=== PATIENT | male | born 1955 | race Caucasian/White ===

== ENCOUNTER 2017-11-11 16:19 | Observation (INO) ==
[2017-11-11] MEDS ORDERED: Nitroglycerin 0.4 MG TAB.SUBL SL PRN ×2 (16:25→17:56)
[2017-11-11] MEDS ORDERED: 0.9 % Sodium Chloride 1,000 ML IVC SCH ×2 (16:30→17:56)
[2017-11-11 16:36] LABS: Hematocrit 37.3 % (37.5-50.1); Hemoglobin 12.4 g/dL (12.9-16.9); Mean Corpuscular HGB Conc 33.2 g/dL (31.6-35.5); Mean Corpuscular Hemoglobin 26.7 pg (28.0-33.3); Mean Corpuscular Volume 80.4 fL (83.0-100.0); Platelet Count 506 K/mcL (140-400); Red Blood Count 4.64 M/mcL (4.19-5.50); Red Cell Distribution Width 14.6 % (11.5-14.5)
--- NOTE | 2017-11-11 16:37 | Emergency Department Note ---
Disposition Clinical Impression: Atrial fibrillation with RVR Disposition: Admitted As Inpatient Chest Pain HPI - General Chief Complaint: ED Chest Pain Stated Complaint: Lt sided cp, onset 2 days ago Time Seen by Provider: 11/11/17 16:20 Source: patient Mode of arrival: ambulatory Limitations: no limitations Vital Signs Reviewed: Yes Nursing Notes Reviewed: Yes - History of Present Illness HPI Narrative: Patient complains of chest pain only when he coughs. He has felt dizzy for the past couple of days. He denies any cardiac history other than hypertension. He denies being diagnosed with atrial fibrillation. He denies any fevers chills nausea vomiting any current chest pain no shortness of breath belly pain diarrhea rashes or other complaints. Pt complaint: chest pain Onset (ago): day(s) (2) Duration: intermittent Onset: during rest Pain Location: left chest, right chest Severity: mild Quality: sharp (with cough) Pain Radiation: none Improves with: nothing Worsens with: nothing Associated symptoms: Reports: other (lightheadedness). Denies: nausea, vomiting , diaphoresis, dyspnea, sense of impending doom, syncope, palpitations, fever, cough, leg swelling - Related Data Home Medications Medication Instructions Recorded Confirmed Albuterol Sulfate [Ventolin Hfa] 8 gm IH Q6H PRN 11/11/17 11/11/17 Docusate Sodium [Stool Softener] 100 mg PO DAILY 11/11/17 11/11/17 Fluticasone/Vilanterol [Breo 1 each IH DAILY 11/11/17 11/11/17 Ellipta 100-25 Mcg INH] Latanoprost [Xalatan] 1 drop OP DAILY 11/11/17 11/11/17 Losartan Potassium [Cozaar] 50 mg PO DAILY 11/11/17 11/11/17 Allergies Allergy/AdvReac Type Severity Reaction Status Date / Time aspirin AdvReac See Verified 11/11/17 16:21 Comments All systems ED: reviewed and negative except as stated. Review of Systems: As Per HPI Constitutional: Denies: fever, chills, weakness, weight change Eyes: Denies: eye pain, eye discharge, vision change ENT ED: Denies: ear pain, throat pain, dental pain, hearing loss, epistaxis, congestion, dysphagia Cardiovascular: Reports: as per HPI (with cough), chest pain. Denies: palpitations, dyspnea on exertion, edema, syncope Respiratory: Reports: as per HPI, cough. Denies: dyspnea, wheezes, hemoptysis, stridor Gastrointestinal: Denies: abdominal pain, nausea, vomiting, diarrhea, constipation, hematemesis, melena, hematochezia Genitourinary: Denies: urgency, dysuria, frequency, hematuria Musculoskeletal: Denies: back pain, neck pain, arthralgia, myalgia Integumentary: Denies: rash, abrasion, lesions Neurological: Denies: headache, weakness, numbness, paresthesias, confusion, abnormal gait, vertigo Psychiatric: Denies: anxiety, depression, suicidal thoughts, homicidal thoughts , auditory hallucinations, visual hallucinations Endocrine: Denies: fatigue Hematological/Lymphatic: Denies: easy bleeding, easy bruising Chest Pain PMH - Past Medical History Medical history: Reports: no medical history Surgical history: Reports: other (Partial colectomy) Psychiatric history: Reports: no psych history - Social History Smoking Status: Current every day smoker Alcohol use: Reports: none Drug use: Reports: none Physical Exam - General Limitations: no limitations General appearance: alert, in no apparent distress - Head Head exam: atraumatic, normocephalic, normal inspection - Eye Eye exam: Present: normal appearance, PERRL, EOMI - ENT ENT exam: normal exam, normal oropharynx, mucous membranes moist - Neck Neck exam: Present: normal inspection, full ROM, trachea midline - Chest Chest inspection: Present: normal inspection, symmetric chest wall rise - Respiratory Respiratory exam: Present: normal lung sounds bilaterally - Cardiovascular Cardiovascular exam: Present: regular rate, normal rhythm - Extremities Exam Extremities exam: Present: normal inspection - Back Exam Back exam: Present: normal inspection - Neurological Exam Neurological exam: Present: alert, oriented X3 - Psychiatric Psychiatric exam: Present: normal affect, normal mood - Skin Skin exam: Present: warm, dry, intact Chest Pain - MDM Narrative Medical decision making narrative: I discussed case with Dr. Singleton accepts admission. I reviewed the patient's medication list - Lab Data Lab results reviewed: Yes I reviewed the patient's lab results. - Radiology Data Radiology results reviewed: Yes I reviewed the patient's radiology results. - EKG Data EKG attestation: Yes I reviewed and interpreted this EKG. EKG results narrative: EKG shows atrial fibrillation with rapid ventricular response. The rate is 151 bpm QRS duration 77 ms QT interval 246 ms QTC 332 ms R axis of [address] and T changes probably secondary to rate. EKG #2 after Cardizem was administered shows a sinus rhythm with sinus arrhythmia. Rate is 95 bpm. Intervals 107 ms. QRS duration 81 ms. QT interval 315 ms QTc interval 367 ms. R axis [address] or T-wave changes.
[2017-11-11 16:43] LABS: INR 1.2; Prothrombin Time 13.8 Seconds (9.4-12.1)
[2017-11-11 16:46] LABS: Activated Partial Thrombo Time 33.7 Seconds (26.0-36.0)
[2017-11-11 16:55] LABS: Alanine Aminotransferase 10 Units/L (7-52); Albumin 3.6 g/dL (3.5-5.7); Alkaline Phosphatase 75 Units/L (34-104); Aspartate Amino Transferase 15 Units/L (13-39); BUN/Creatinine Ratio 11 (6-26); Bilirubin,Total 0.3 mg/dL (0.3-1.0); Blood Urea Nitrogen 11 mg/dL (8-23); Calcium 9.4 mg/dL (8.6-10.3); Carbon Dioxide 25 mEq/L (23-29); Chloride 99 mEq/L (98-107); Globulin 3.7 g/dL (2.4-3.5); Glucose 168 mg/dL (70-105); Osmolality,Calculated 281 (280-300); Potassium 3.9 mEq/L (3.5-5.1); Sodium 134 mEq/L (136-145); Total Protein 7.3 g/dL (6.4-8.9); Troponin I < 0.03 ng/mL (< 0.04); eGFR For Non-African Americans > 60 (> 60)
[2017-11-11] MEDS ORDERED: Naloxone 0.4 MG/ML INJ IVP PRN (17:56)
[2017-11-11 18:40] LABS: Basophils # 0.1 K/mcL (0.0-0.2); Basophils % 0.4 %; Eosinophils # 0.2 K/mcL (0.0-0.6); Eosinophils % 1.2 %; Hematocrit 37.4 % (37.5-50.1); Hemoglobin 12.3 g/dL (12.9-16.9); Immature Granulocytes % 0.6 % (0-4); Lymphocytes % 14.4 %; Mean Corpuscular HGB Conc 32.9 g/dL (31.6-35.5); Mean Corpuscular Hemoglobin 26.5 pg (28.0-33.3); Mean Corpuscular Volume 80.6 fL (83.0-100.0); Mean Platelet Volume 9.1 fL (9.4-12.4); Monocytes # 1.3 K/mcL (0.0-1.3); Monocytes % 9.1 %; Neutrophils # 10.6 K/mcL (1.6-8.9); Platelet Count 495 K/mcL (140-400); Red Blood Count 4.64 M/mcL (4.19-5.50); Red Cell Distribution Width 14.6 % (11.5-14.5); Segmented Neutrophils % 74.3 %
[2017-11-12 04:51] LABS: BUN/Creatinine Ratio 9 (6-26); Blood Urea Nitrogen 9 mg/dL (8-23); Calcium 9.3 mg/dL (8.6-10.3); Carbon Dioxide 25 mEq/L (23-29); Chloride 102 mEq/L (98-107); Glucose 140 mg/dL (70-105); Osmolality,Calculated 281 (280-300); Potassium 4.2 mEq/L (3.5-5.1); Sodium 135 mEq/L (136-145); eGFR For Non-African Americans > 60 (> 60)
[2017-11-12] MEDS: (Fluticasone/Vilanterol [Breo Ellipta 100-25 Mcg Inh]) IH SCH (08:35)
[2017-11-12] MEDS: Latanoprost 2.5 ML BOTTLE RIGHT EYE SCH (08:36)
--- NOTE | 2017-11-12 10:32 | Internal Med History&Physical ---
Date of Encounter: 11/12/17 Time of Encounter: 09:55 Assessment and Plan (1) Atrial fibrillation with RVR Current visit: Yes Status: Acute Now converted back to NSR. Will order TSH and echocardiogram to further evaluate. (2) COPD (chronic obstructive pulmonary disease) Current visit: Yes Status: Chronic Room air oximetry will be checked on 6 minute walk prior to discharge to see if home oxygen is needed. Chest CT will be done to further evaluate leukocytosis and follow up on cavitary lesion. Qualifiers: COPD type: unspecified COPD Qualified Code(s): J44.9 - Chronic obstructive pulmonary disease, unspecified (3) Cavitary lesion of lung Current visit: Yes Status: Acute As per above (4) Microcytic anemia Current visit: Yes Status: Acute Duration unknown. Suspect iron deficiency. Anemia testing has been ordered. (5) Hypertension Current visit: Yes Status: Chronic Continue Cozaar and monitor blood pressure. Qualifiers: Hypertension type: essential hypertension Qualified Code(s): I10 - Essential (primary) hypertension (6) Leukocytosis Current visit: Yes Status: Acute Duration unknown. We will order chest CT as per above Qualifiers: Leukocytosis type: unspecified Qualified Code(s): D72.829 - Elevated white blood cell count, unspecified Internal Medicine - H&P: HPI Chief complaint: AF with RVR Admitted From: Emergency Dept Plans for Post Hospital Care: Home History of present illness: Mr. Grady is a 62 year old male who came to emergency room after developing recurrent discomfort in his chest that he describes as a sharp precordial discomfort that occurred while at leisure. He denies significant dyspnea or cough. He reports a similar episode had occurred the previous day while at leisure and lasted 10-15 minutes. He was evaluated in emergency room and found to have atrial fibrillation with rapid ventricular response. He was given Cardizem and converted to normal sinus rhythm. He was admitted to [facility] floor for ongoing care needs. He denies previous occurrence of atrial fibrillation. Cardiovascular history is significant for hypertension. He denies RI heart failure angina DVT or pulmonary embolus. He denies alcohol use. He drinks 2 cups coffee and consumes 2 cans Pepsi daily which is unchanged for several years. He feels back to his baseline now. Past Med Surg Social Fam HX - Past Medical History Medical history: no medical history Psychiatric history: no psych history - Past Surgical History Surgical History: other (Partial colectomy) Additional surgical history: BOWEL BLOCKAGE WITH SECTION OF COLOR REMOVED 2000 - Social History Smoking Status: Current every day smoker Smokeless Tobacco Status: No Alcohol use: none Drug use: none - Family History Brother Living Status: Hx Family Cardiac Disorders: Yes Hx Family Cancer: Yes (lung) Internal Medicine - H&P: Meds Albuterol Sulfate [Ventolin Hfa] 8 gm IH Q6H PRN 11/11/17 [History] Docusate Sodium [Stool Softener] 100 mg PO DAILY 11/11/17 [History] Fluticasone/Vilanterol [Breo Ellipta 100-25 Mcg INH] 1 each IH DAILY 11/11/17 [ History] Latanoprost [Xalatan] 1 drop OP DAILY 11/11/17 [History] Losartan Potassium [Cozaar] 50 mg PO DAILY 11/11/17 [History] 3 Allergy/AdvReac Type Severity Reaction Status Date / Time aspirin AdvReac See Verified 11/11/17 16:21 Comments All Systems PM: A 10-system review of systems was performed and is negative for pertinent findings except as documented above in the HPI. Review of systems: Gen.: He states his weight has been stable for several months Cardiovascular: As per history of present illness Respiratory: He states he quit smoking approximate 7 months ago after starting at age 8 and smoking up to 4 packs per day. He had pulmonary function test 10/2017 which showed FVC 78% predicted, FEV1 61% predicted, FEV1/FVC 60%, MVV 38 % predicted, and RV 172% predicted. There was no significant improvement in FEV1 postbronchodilator. He was diagnosed with moderate obstructive lung disease. He does not use home oxygen. Chest CT 10/13/2017 showed right upper lobe cavitary lesion possibly representing pneumonia although underlying mass could not be excluded. Reports seeing a track worker a few days later and was told to return for follow-up in 2 months. GI: Denies disorders of his liver gallbladder or exocrine pancreas. He reports he had bowel obstruction requiring surgical intervention and possible segmental resection over 20 years ago. He denies recurrent obstruction. : He denies hematuria dysuria or kidney stones. Neurologic: He denies large distribution strokes or seizures. Endocrine: He denies diabetes thyroid disease or hyperlipidemia Hematology/oncology: He was unaware he had anemia. He denies internal malignancies or other blood disorders. Psychiatric: He denies anxiety depression or other mental health issues [place] skeletal: He denies arthritis gout or other bone joint or muscle disorders. - Constitutional Vitals: Temp Pulse Resp BP Pulse Ox 99.0 F 77 16 120/71 94 11/12/17 06:45 11/12/17 06:45 11/12/17 06:45 11/12/17 06:45 11/12/17 06:45 Exam: Gen.: He is a well-developed well-nourished male resting comfortably in bed who appears in no acute distress at present time HEENT: Head is atraumatic and normocephalic. Eyes: EOMI. There is no scleral icterus. Mouth: Mucosa is moist. Neck: Supple and nontender. There is no thyromegaly or adenopathy noted. Heart: Regular without murmurs gallops or ectopics Lungs: No wheezes or crackles are heard. Abdomen: Soft and nontender. No masses or guarding are noted. He has well- healed surgical scars from previous abdominal surgery. Extremities: There is no cyanosis edema or clubbing noted. Dorsalis pedis and posttibial pulses are 1-2 over 2 bilaterally. Neurologic: Mental status: He is talkative and a good historian. Cranial nerves : Smile is symmetric. Forehead wrinkles bilaterally. Tongue protrudes midline. EOMI. Motor: There is no pronator drift. Cerebellar: Finger to nose is intact bilaterally. Skin: Warm and dry Internal Med - H&P Results - Labs CBC & Chem 7: 11/11/17 18:30 11/12/17 04:18 Labs: Short CBC 11/11/17 Range/Units 18:30 WBC 14.2 H (4.3-11.1) K/mcL Hgb 12.3 L (12.9-16.9) g/dL Hct 37.4 L (37.5-50.1) % Plt Count 495 H (140-400) K/mcL Neutrophils # 10.6 H (1.6-8.9) K/mcL BMP 11/12/17 04:18 Sodium 135 L Potassium 4.2 Chloride 102 Carbon Dioxide 25 BUN 9 Creatinine 0.97 Glucose 140 H Calcium 9.3 Cardiac Enzymes 11/11/17 11/12/17 Range/Units 18:30 04:18 Troponin I < 0.03 < 0.03 (< 0.04) ng/mL
[2017-11-12 16:38] LABS: Estimated Average Glucose 126 mg/dl
[2017-11-12 16:48] LABS: % Iron Saturation 5 % (20-55); Iron 11 mcg/dL (65-175); Transferrin 164 mg/dL (203-362)
[2017-11-12 17:05] LABS: Ferritin 352 ng/mL (20-250)
[2017-11-12 17:10] LABS: Folate 20.9 ng/mL (3.0-16.0)
[2017-11-12] MEDS: Piperacillin/Tazobactam 3.375 GM in 0.9 % Sodium Chloride Mini Bag 100 ML IVPB SCH (18:36)
[2017-11-12] MEDS: Lactobacillus 1 EACH CAP.SPRINK PO SCH (21:05)
[2017-11-13] MEDS: Piperacillin/Tazobactam 3.375 GM in 0.9 % Sodium Chloride Mini Bag 100 ML IVPB SCH ×2 (00:22→08:47)
[2017-11-13 05:59] LABS: Basophils # 0.1 K/mcL (0.0-0.2); Basophils % 0.5 %; Eosinophils # 0.3 K/mcL (0.0-0.6); Eosinophils % 2.8 %; Hematocrit 34.3 % (37.5-50.1); Hemoglobin 11.2 g/dL (12.9-16.9); Immature Granulocytes % 0.5 % (0-4); Lymphocytes # 1.4 K/mcL (0.6-4.6); Lymphocytes % 13.8 %; Mean Corpuscular HGB Conc 32.7 g/dL (31.6-35.5); Mean Corpuscular Hemoglobin 26.5 pg (28.0-33.3); Mean Corpuscular Volume 81.3 fL (83.0-100.0); Mean Platelet Volume 9.5 fL (9.4-12.4); Monocytes # 1.2 K/mcL (0.0-1.3); Monocytes % 11.2 %; Neutrophils # 7.4 K/mcL (1.6-8.9); Platelet Count 443 K/mcL (140-400); Red Blood Count 4.22 M/mcL (4.19-5.50); Red Cell Distribution Width 14.9 % (11.5-14.5); Segmented Neutrophils % 71.2 %
[2017-11-13] MEDS ORDERED: *HR* Digoxin 0.5 MG/2 ML AMPUL IVP ONE ×2 (06:03→11:01)
[2017-11-13] MEDS ORDERED: *HR* Propranolol 1 MG/ML VIAL IVP ONE ×2 (06:04→11:01)
[2017-11-13 06:15] LABS: BUN/Creatinine Ratio 9 (6-26); Blood Urea Nitrogen 9 mg/dL (8-23); Calcium 9.2 mg/dL (8.6-10.3); Carbon Dioxide 25 mEq/L (23-29); Chloride 102 mEq/L (98-107); Glucose 129 mg/dL (70-105); Magnesium 1.8 mg/dL (1.6-2.6); Osmolality,Calculated 282 (280-300); Potassium 3.8 mEq/L (3.5-5.1); Sodium 136 mEq/L (136-145); eGFR For Non-African Americans > 60 (> 60)
[2017-11-13] MEDS: Lactobacillus 1 EACH CAP.SPRINK PO SCH (08:46)
[2017-11-13] MEDS: Latanoprost 2.5 ML BOTTLE RIGHT EYE SCH (08:48)
[2017-11-13] MEDS: (Fluticasone/Vilanterol [Breo Ellipta 100-25 Mcg Inh]) IH SCH (08:49)
--- NOTE | 2017-11-13 10:06 | Discharge Summary ---
Date of Encounter: 11/13/17 Time of Encounter: 09:50 - Discharge Diagnosis (1) Atrial fibrillation with RVR Priority: Primary Status: Acute (2) Cavitary lesion of lung Priority: Secondary Status: Acute (3) Postobstructive pneumonia Priority: Secondary Status: Acute (4) COPD (chronic obstructive pulmonary disease) Priority: Secondary Status: Chronic Qualifiers: COPD type: unspecified COPD Qualified Code(s): J44.9 - Chronic obstructive pulmonary disease, unspecified (5) Microcytic anemia Priority: Secondary Status: Acute (6) Hypertension Priority: Secondary Status: Chronic Qualifiers: Hypertension type: essential hypertension Qualified Code(s): I10 - Essential (primary) hypertension Hospital course: Mr. Grady is a 62 year old male who came to emergency room after developing recurrent discomfort in his chest that he describes as a sharp precordial discomfort that occurred while at leisure. He denies significant dyspnea or cough. He reports a similar episode had occurred the previous day while at leisure and lasted 10-15 minutes. He was evaluated in emergency room and found to have atrial fibrillation with rapid ventricular response. He was given Cardizem and converted to normal sinus rhythm. He was admitted to [facility] for ongoing care needs. Initial orders were written by the emergency room physician. I saw him on November 12 and performed a history and physical. By the time I saw him he had converted back to normal sinus rhythm. TSH returned normal at 1.988. Echocardiogram was ordered to further evaluate but had not been done by time of transfer. Chest CT was ordered to further evaluate leukocytosis and cavitary lesion seen on chest CT [address] showed a cavitary lesion measuring 6.4 x 5.2 x 7.7 cm. The radiologist stated findings were highly suspicious for a large squamous cell carcinoma. I spoke with the patient about these findings the afternoon of November 12 but he declined suggested transfer at that time stating he wanted to talk to family. I spoke to him again the morning of November 13 with his daughter in the room and he agreed to be transferred to [facility] for ongoing care needs. He developed recurrent atrial fibrillation the early childhood associate of November 13. He was given IV beta annie and Lanoxin initially. IV Cardizem was then ordered with additional IV beta annie and Lanoxin given prior to transfer. He was asymptomatic and vital signs remained stable otherwise. Anemia testing showed iron 11, transferrin saturation 5%, transferrin 164, ferritin 352, B12 820, and folate 20.9. He can be started on supplemental ferrous sulfate by physicians assuming his care. Hemoglobin A1c returned at 6.0% consistent with prediabetes. I spoke with the hospitalist at [facility] and the patient was accepted in transfer for ongoing care needs. - Time Spent with Patient Total time spent providing and/or coordinating discharge services: - Discharge Medications Home Medications: Albuterol Sulfate [Ventolin Hfa] 8 gm IH Q6H PRN 11/11/17 [History] Docusate Sodium [Stool Softener] 100 mg PO DAILY 11/11/17 [History] Fluticasone/Vilanterol [Breo Ellipta 100-25 Mcg INH] 1 each IH DAILY 11/11/17 [ History] Latanoprost [Xalatan] 1 drop OP DAILY 11/11/17 [History] Losartan Potassium [Cozaar] 50 mg PO DAILY 11/11/17 [History] Allergies/Adverse Reactions: 3 Allergy/AdvReac Type Severity Reaction Status Date / Time aspirin AdvReac See Verified 11/11/17 16:21 Comments Date of admission: 11/11/17 17:33 Primary care physician: Lis Louis CNP - Constitutional Vitals: Temp Pulse Resp BP Pulse Ox 98.3 F 105 16 111/72 96 11/13/17 07:17 11/13/17 07:17 11/13/17 07:17 11/13/17 07:17 11/13/17 07:17 - Patient Status Disposition: Transfer Other - Discharge Instructions
[2017-11-13 10:25] VITALS: BP 110/64
--- NOTE | 2017-11-15 14:45 | Electrocardiograph Report ---
[address] [place], [place] [address] Test Date: 2017-11-11 Pat Name: Ashley Grady Department: 9201 Room: [facility] Gender: M [employer]: Jose : 1955 Requested By: Andrew Call Order Number: [id number] Reading MD: Irasema Chavarria Measurements Intervals [place] Rate: 151 P: [place]: 0 QRS: 60 QRSD: 77 T: 51 QT: 246 QTc: 332 Interpretive Statements ATRIAL FIBRILLATION WITH RAPID VENTRICULAR RESPONSE NONSPECIFIC ST & T-WAVE ABNORMALITY Electronically Signed On 11-15-2017 14:44:21 EDT by Irasema Chavarria
--- NOTE | 2017-11-15 14:51 | Electrocardiograph Report ---
[address] [address] Test Date: 2017-11-11 Pat Name: Ashley Grady Department: [id number] Room: [facility] Gender: M Shank Paperer: Jose : 1955 Requested By: Andrew Call Order Number: [id number] Reading MD: Irasema Chavarria Measurements Intervals [place] Rate: 95 P: 55 [place]: 157 QRS: 44 QRSD: 81 T: 43 QT: 315 QTc: 367 Interpretive Statements SINUS RHYTHM WITH SINUS ARRHYTHMIA Electronically Signed On 11-15-2017 14:49:47 EDT by Irasema Chavarria
== END 2017-11-13 12:45 | disposition other institution (70) ==
LOC: INPPIK 16:19 → EMEROOPIK 16:19 → INPPIK 17:49
PROVIDERS: ADMIT Internal Medicine; ATTEND Internal Medicine